=== PATIENT | female | born 1990 | race Caucasian/White ===

== ENCOUNTER 2016-12-20 16:40 | Inpatient (IN) | payer MEDICAID ==
[~2016-12-20] VITALS: Ht 162.6 cm; Wt 25.9 kg
[2016-12-20] MEDS: ACETAMINOPHEN 500 MG TABLET PO ONE ×2 (18:32→18:38)
[2016-12-20 18:36] LABS: APPEARANCE,URINE CLOUDY (CLEAR); GLUCOSE, URINE (UA) NEGATIVE (NEGATIVE); KETONES,URINE 40 mg/dL (NEGATIVE); LEUKOCYTE ESTERASE ,URINE SMALL (NEGATIVE); OCCULT BLOOD,URINE NEGATIVE (NEGATIVE); PROTEIN,URINE POS 1+ (NEGATIVE)
[2016-12-20] MEDS ORDERED: ACETAMINOPHEN 1000 MG/ISO-OSM 100 ML IV ONE (18:45)
[2016-12-20] MEDS ORDERED: SODIUM CHLORIDE 0.9% 1,000 ML IV ONE ×2 (18:45→20:45)
[2016-12-20 18:50] LABS: RBC,URINE None Seen /HPF (0-2)
[2016-12-20 18:58] LABS: HEMATOCRIT 45.4 % (36-46); HEMOGLOBIN 14.7 g/dL (12.0-16.0); MEAN CORPUSCULAR HEMOGLOBIN 30.2 pg (26.0-34.0); MEAN CORPUSCULAR HGB CONC 32.4 G/dL (31.0-37.0); MEAN CORPUSCULAR VOLUME 93 fL (80-100); PLATELET COUNT (AUTO) 242 K/uL (150-450); RED BLOOD CELL COUNT(AUTO) 4.88 MIL/uL (4.00-5.20); RED CELL DISTRIBUTION WIDTH 13.6 % (11.5-14.5); WHITE BLOOD COUNT (AUTO) 11.9 K/uL (4.5-11.0)
[2016-12-20] MEDS ORDERED: CefTRIAXone 1 GM/DEXTROSE 50 ML IV ONE (19:00)
[2016-12-20 19:28] LABS: ANION GAP 19 mmol/L (8-16); CALCIUM, TOTAL 9.8 mg/dL (8.8-10.5); CARBON DIOXIDE 20 mmol/L (22-29); CHLORIDE 106 mmol/L (98-107); CREATININE 1.45 mg/dL (0.60-1.30); GLOMERULAR FILTR. RATE CALC 43 mL/min (>60); POTASSIUM 4.2 mmol/L (3.5-5.1); SODIUM SERUM 145 mmol/L (136-145); UREA NITROGEN, BLOOD 21 mg/dL (7-18)
[2016-12-20 19:38] LABS: BAND NEUTROPHILS % (MANUAL) 17 % (1-5); LYMPHOCYTES % (MANUAL) 2 % (22-44); TOTAL CELLS COUNTED 100
[2016-12-20 19:52] LABS: ALANINE AMINOTRANSFERASE 29 U/L (12-78); ALBUMIN 5.2 g/dL (3.4-5.0); ASPARTATE AMINOTRANSFERASE 19 U/L (15-37); BILIRUBIN,TOTAL 1.1 mg/dL (0.1-1.0); CREATINE KINASE MB 1.2 ng/mL (0-5); CREATINE KINASE, TOTAL 190 U/L (26-192); TOTAL PROTEIN, SERUM 9.7 g/dL (6.4-8.2)
[2016-12-20 19:57] LABS: SALICYLATE 0.3 mg/dL (2.8-20.0)
[2016-12-20] MEDS ORDERED: LIDOCAINE HCL BUFFERED 1% 20 ML VIAL INJ ONE (20:15)
[2016-12-20 20:29] LABS: ACETAMINOPHEN < 2 mcg/mL (10-30)
[2016-12-20 20:50] LABS: APPEARANCE,CSF CLEAR (CLEAR)
[2016-12-20 20:51] LABS: COLOR,CSF COLORLESS (COLORLESS)
[2016-12-20 20:57] LABS: GLUCOSE, CSF 92 mg/dL (50-80); TOTAL PROTEIN, CSF 27 mg/dL (15-45)
[2016-12-21] MEDS ORDERED: HALOPERIDOL 5 MG TABLET PO PRN (01:15)
[2016-12-21] MEDS ORDERED: ZOLPIDEM TARTRATE 10 MG TABLET PO PRN (01:15)
[2016-12-21] MEDS ORDERED: LORazepam 1 MG TABLET PO PRN (01:15)
[2016-12-21] MEDS ORDERED: CEPHALEXIN MONOHYDRATE 500 MG CAPSULE PO ONE (09:00)
[2016-12-21] MEDS ORDERED: LIDOCAINE HCL/PF 1% 2 ML VIAL IM ONE (12:45)
[2016-12-21] MEDS ORDERED: CefTRIAXone SODIUM 1 GM/VIAL IM SCH (18:45)
[2016-12-21] MEDS ORDERED: LIDOCAINE HCL/PF 1% 2 ML VIAL IM SCH (18:45)
[2016-12-21 20:07] LABS: GLUCOSE,POINT OF CARE 98 MG/DL (70-110)
[2016-12-21 20:47] VITALS: BP 110/64
[2016-12-21 21:27] VITALS: BP 110/64
[2016-12-22 03:25] VITALS: BP 128/72
[2016-12-22 08:30] VITALS: BP 106/56
[2016-12-22] MEDS ORDERED: IBUPROFEN 400 MG TABLET PO PRN (11:45)
[2016-12-22] MEDS ORDERED: ACETAMINOPHEN 325 MG TABLET PO PRN (11:45)
[2016-12-22 19:22] VITALS: BP 100/69
[2016-12-22] MEDS: LIDOCAINE HCL/PF 1% 2 ML VIAL IM SCH (20:00)
[2016-12-22] MEDS: CefTRIAXone SODIUM 1 GM/VIAL IM SCH (20:00)
[2016-12-22] MEDS: RisperiDONE 0.5 MG TABLET PO SCH (20:50)
[2016-12-23 05:09] VITALS: BP 104/65
[2016-12-23 07:41] LABS: CHOL/HDL RATIO 2.6 (3.9-5.7); THYROID STIMULATING HORMONE 1.39 uIU/mL (0.36-3.74)
[2016-12-23 07:45] LABS: HEMOGLOBIN A1C 5.4 % (4.5-6.2)
[2016-12-23] MEDS ORDERED: RisperiDONE 0.5 MG TABLET PO SCH (09:00)
[2016-12-23] MEDS: RisperiDONE 0.5 MG TABLET PO SCH ×2 (09:00→16:44)
[2016-12-23 10:12] VITALS: BP 111/60
[2016-12-23 16:30] VITALS: BP 101/58
[2016-12-23] MEDS: LIDOCAINE HCL/PF 1% 2 ML VIAL IM SCH (19:02)
[2016-12-23] MEDS: CefTRIAXone SODIUM 1 GM/VIAL IM SCH (19:02)
[2016-12-24 06:37] VITALS: BP 115/68
[2016-12-24 07:34] LABS: CHOL/HDL RATIO 2.7 (3.9-5.7)
[2016-12-24] MEDS: OLANZapine 5 MG RAPDIS TABLET PO SCH ×2 (09:20→17:46)
[2016-12-24 09:58] VITALS: BP 124/71
[2016-12-24] MEDS: CefTRIAXone SODIUM 1 GM/VIAL IM SCH (19:30)
[2016-12-24] MEDS: LIDOCAINE HCL/PF 1% 2 ML VIAL IM SCH (19:30)
[2016-12-24 19:48] VITALS: BP 117/70
[2016-12-25 08:31] VITALS: BP 123/73
[2016-12-25] MEDS: OLANZapine 5 MG RAPDIS TABLET PO SCH ×2 (09:00→16:21)
[2016-12-25 17:13] VITALS: BP 119/71
[2016-12-25] MEDS: LIDOCAINE HCL/PF 1% 2 ML VIAL IM SCH (18:54)
[2016-12-25] MEDS: CefTRIAXone SODIUM 1 GM/VIAL IM SCH (18:54)
[2016-12-25] MEDS ORDERED: OLANZapine 5 MG RAPDIS TABLET PO SCH (21:00)
[2016-12-26 08:36] VITALS: BP 112/83
[2016-12-26] MEDS ORDERED: OLAN5Z PO (09:30)
[2016-12-26] MEDS ORDERED: CEFX1I IM (09:33)
== END 2016-12-26 17:30 | disposition home or self-care (01) | DRG 751 ==
LOC: EDBD 16:43 → EMS 16:43 → B2S 12-21 11:10 → 3EI 12-21 21:42
PROVIDERS: ADMIT Psychiatry & Neurology Psychiatry; ATTEND Psychiatry & Neurology Psychiatry
PROC: 009U3ZX Drainage of Spinal Canal, Percutaneous Approach, Diagnostic (ICD-10-PCS; principal; 2016-12-21)
DX: F29 Unspecified psychosis not due to a substance or known physiological condition (principal); N39.0 Urinary tract infection, site not specified; R41.82 Altered mental status, unspecified; E86.0 Dehydration; D72.829 Elevated white blood cell count, unspecified
CPT/HCPCS: 62270; 70450; 82945; 82962; 83036; 84157; 84443; 87040; 87070; 87086; 87205; 89051; 93005; 96361; 96365; 96368; 96372; 99285; G0480; G0481; J0131; J0696; J3490; J7030

== ENCOUNTER 2017-01-09 04:22 | Emergency (ER) | payer SELFPAY ==
[~2017-01-09] VITALS: Ht 154.9 cm; Wt 61.4 kg
[~2017-01-09 04:22] MED LIST: CEFX1I IM; OLAN5Z PO
[2017-01-09 05:23] LABS: BASOPHILS # (AUTO) 0.01 K/uL (0.00-0.20); BASOPHILS % (AUTO) 0.2 % (0.0-2.0); EOSINOPHILS % (AUTO) 0.01 % (1.0-6.0); HEMATOCRIT 41.1 % (36-46); HEMOGLOBIN 13.9 g/dL (12.0-16.0); LYMPHOCYTES # (AUTO) 0.6 K/uL (1.0-4.8); LYMPHOCYTES % (AUTO) 12.8 % (22.0-44.0); MEAN CORPUSCULAR HEMOGLOBIN 31.3 pg (26.0-34.0); MEAN CORPUSCULAR HGB CONC 33.7 G/dL (31.0-37.0); MEAN CORPUSCULAR VOLUME 93 fL (80-100); MONOCYTES # (AUTO) 0.3 K/uL (0.1-1.0); MONOCYTES % (AUTO) 5.5 % (2.0-9.0); NEUTROPHILS # (AUTO) 3.9 K/uL (1.8-7.7); NEUTROPHILS % (AUTO) 81.6 % (40.0-70.0); PLATELET COUNT (AUTO) 283 K/uL (150-450); RED BLOOD CELL COUNT(AUTO) 4.43 MIL/uL (4.00-5.20); RED CELL DISTRIBUTION WIDTH 13.1 % (11.5-14.5); WHITE BLOOD COUNT (AUTO) 4.8 K/uL (4.5-11.0)
[2017-01-09 05:30] LABS: ANION GAP 9 mmol/L (8-16); CALCIUM, TOTAL 9.4 mg/dL (8.8-10.5); CARBON DIOXIDE 28 mmol/L (22-29); CHLORIDE 98 mmol/L (98-107); CREATININE 0.84 mg/dL (0.60-1.30); GLOMERULAR FILTR. RATE CALC > 60 mL/min (>60); POTASSIUM 3.7 mmol/L (3.5-5.1); SODIUM SERUM 135 mmol/L (136-145); UREA NITROGEN, BLOOD 8 mg/dL (7-18)
[2017-01-09] MEDS ORDERED: DiphenhydrAMINE HCL 50 MG CAPSULE PO ONE (05:30)
[2017-01-09 05:36] LABS: ALANINE AMINOTRANSFERASE 23 U/L (12-78); ALBUMIN 4.7 g/dL (3.4-5.0); ASPARTATE AMINOTRANSFERASE 14 U/L (15-37); BILIRUBIN,TOTAL 0.8 mg/dL (0.1-1.0); TOTAL PROTEIN, SERUM 8.5 g/dL (6.4-8.2)
[2017-01-09 06:17] VITALS: BP 137/82
== END 2017-01-09 06:18 | disposition home or self-care (01) ==
LOC: EMS 04:22
DX: G47.00 Insomnia, unspecified (principal); F29 Unspecified psychosis not due to a substance or known physiological condition; F32.9 Major depressive disorder, single episode, unspecified
CPT/HCPCS: 36415; 80053; 84703; 85025; 99284; G0480

== ENCOUNTER 2017-12-11 16:03 | Emergency (ER) | payer SELFPAY ==
[~2017-12-11] VITALS: Ht 162.6 cm; Wt 63.6 kg
[2017-12-11 19:24] LABS: BASOPHILS % (AUTO) 0.8 % (0.0-2.0); EOSINOPHILS % (AUTO) 2.3 % (1.0-6.0); LYMPHOCYTES # (AUTO) 1.5 K/uL (1.0-4.8); LYMPHOCYTES % (AUTO) 30.1 % (22.0-44.0); MEAN CORPUSCULAR HEMOGLOBIN 31.3 pg (26.0-34.0); MEAN CORPUSCULAR VOLUME 89 fL (80-100); MONOCYTES # (AUTO) 0.3 K/uL (0.1-1.0); MONOCYTES % (AUTO) 6.6 % (2.0-9.0); NEUTROPHILS % (AUTO) 60.2 % (40.0-70.0); PLATELET COUNT (AUTO) 269 K/uL (150-450); RED BLOOD CELL COUNT(AUTO) 4.48 MIL/uL (4.00-5.20); RED CELL DISTRIBUTION WIDTH 12.9 % (11.5-14.5)
[2017-12-11 19:34] LABS: ANION GAP 10 mmol/L (8-16); CALCIUM, TOTAL 9.2 mg/dL (8.8-10.5); CARBON DIOXIDE 27 mmol/L (22-29); CHLORIDE 99 mmol/L (98-107); CREATININE 0.82 mg/dL (0.60-1.30); GLOMERULAR FILTR. RATE CALC > 60 mL/min (>60); GLUCOSE,RANDOM 86 mg/dL (70-110); POTASSIUM 3.7 mmol/L (3.5-5.1); SODIUM SERUM 136 mmol/L (136-145); UREA NITROGEN, BLOOD 12 mg/dL (7-18)
[2017-12-11 19:39] LABS: ALANINE AMINOTRANSFERASE 72 U/L (12-78); ALBUMIN 4.3 g/dL (3.4-5.0); ALKALINE PHOSPHATASE 64 U/L (46-116); ASPARTATE AMINOTRANSFERASE 29 U/L (15-37); BILIRUBIN,TOTAL 0.5 mg/dL (0.1-1.0); TOTAL PROTEIN, SERUM 8.4 g/dL (6.4-8.2)
[2017-12-11 20:35] VITALS: BP 114/74
== END 2017-12-11 20:43 | disposition home or self-care (01) ==
LOC: EMS 16:05
DX: F41.9 Anxiety disorder, unspecified (principal); F22 Delusional disorders; F32.9 Major depressive disorder, single episode, unspecified
CPT/HCPCS: 36415; 80053; 84703; 85025; 99284; G0480